=== PATIENT | female | born 1950 | race Caucasian/White ===

== ENCOUNTER → 2016-10-24 | Outpatient (CLI) | payer MEDICARE ==
[2016-10-24 14:13] VITALS: BP 182/90; PULSE 82; RESP 16; TEMP 99.3; BMI 41.5
--- NOTE | 2016-10-24 14:45 | P.HPBAR ---
Bariatric H&P - History & Physicial H&P Date: 10/24/16 History & Physicial: Visit/CC: Band Fill Patient initial contact: Initial weight: 136.078 kg Initial weight in pounds: 300.00 Height: 5 ft 7 in Initial BMI: 47.0 Last weight: Current weight: 120.259 kg Current weight in pounds: 265.00 Current BMI: 41.5 [place] body weight (based on NIH guidelines): 61.235 kg Excess body weight loss: 21.2% The patient is a 66 year-old F who presents for Bariatric Assessment. The patient presents for lab band follow. She is requesting a fill of her LAP- BAND. She currently feels. Past Medical History Past Medical History: GERD/Reflux, Hyperlipidemia, Hypertension, Thyroid Disorder Additional Past Medical History / Comment(s): migraines, recurrent bronchitis, arthritis, low back and neck pain History of Any Multi-Drug Resistant Organisms: None Reported Past Surgical History: Adenoidectomy, Bariatric Surgery, Hernia Repair, Hysterectomy, Tonsillectomy, Tubal Ligation Additional Past Surgical History / Comment(s): bilateral cataract surgery, Bypass by Dr Hurst and band placed over in 2012, Past Anesthesia/Blood Transfusion Reactions: No Reported Reaction Additional Past Anesthesia/Blood Transfusion Reaction / Comm: occasional vertigo Past Psychological History: Anxiety, Depression, Panic Disorder Smoking Status: Former smoker Past Alcohol Use History: None Reported Past Drug Use History: None Reported - Past Family History Mother Family Medical History: Coronary Artery Disease (CAD) Additional Family Medical History / Comment(s): from congestive heart failure Sister(s) Family Medical History: Coronary Artery Disease (CAD) Additional Family Medical History / Comment(s): from heart disease Surgical - Exam Vital Signs Temp Pulse Resp BP 99.3 F 82 16 182/90 10/24/16 14:11 10/24/16 14:11 10/24/16 14:11 10/24/16 14:11 - General well developed, no distress - Eyes PERRL - ENT normal pinna - Neck no masses - Respiratory normal expansion - Cardiovascular Rhythm: regular - Abdomen Abdomen: soft, non tender Bariatric Assessment & Plan Plan: The patient's lap band was adjusted. She had 1 mL added to her band. She currently has 7 mL in the band. She'll follow-up in one month. Bariatric Checklist Checklist: Plan: Checklist: EGD: 1. Hiatal hernia: 2. H. Pylori: HgbA1c: Vitamin D: Smoking: Former smoker Primary care physician referral: [facility] Psychiatry clearance: Cardiology clearance: Sleep study: Diet journal: VTE risk score: VTE risk level: Rehab needs at discharge:
== END | disposition home or self-care (01) ==
LOC: BARWHC3 13:02
PROVIDERS: ATTEND Surgery
DX: Z48.815 Encounter for surgical aftercare following surgery on the digestive system (principal); Z68.41 Body mass index [BMI] 40.0-44.9, adult; Z87.891 Personal history of nicotine dependence; Z98.84 Bariatric surgery status
CPT/HCPCS: 99212

== ENCOUNTER → 2016-11-28 | Outpatient (CLI) | payer MEDICARE ==
[2016-11-28 15:02] VITALS: BP 170/82; PULSE 72; TEMP 98.1; BMI 41.4
--- NOTE | 2016-11-28 15:02 | P.HPBAR ---
Bariatric H&P - History & Physicial H&P Date: 11/28/16 History & Physicial: Visit/CC: Patient initial contact: Initial weight: 136.078 kg Initial weight in pounds: Height: 5 ft 7 in Initial BMI: Last weight: Current weight: 120.111 kg Current weight in pounds: Current BMI: [place] body weight (based on NIH guidelines): Excess body weight loss: The patient is a 66 year-old F who presents for Bariatric Assessment. The patient is requesting a fill of her LAP-BAND. She currently feels hungry. Past Medical History Past Medical History: GERD/Reflux, Hyperlipidemia, Hypertension, Thyroid Disorder Additional Past Medical History / Comment(s): migraines, recurrent bronchitis, arthritis, low back and neck pain History of Any Multi-Drug Resistant Organisms: None Reported Past Surgical History: Adenoidectomy, Bariatric Surgery, Hernia Repair, Hysterectomy, Tonsillectomy, Tubal Ligation Additional Past Surgical History / Comment(s): bilateral cataract surgery, Bypass by Dr Hurst and band placed over in 2012, Past Anesthesia/Blood Transfusion Reactions: No Reported Reaction Additional Past Anesthesia/Blood Transfusion Reaction / Comm: occasional vertigo Past Psychological History: Anxiety, Depression, Panic Disorder Smoking Status: Former smoker Past Alcohol Use History: None Reported Past Drug Use History: None Reported - Past Family History Mother Family Medical History: Coronary Artery Disease (CAD) Additional Family Medical History / Comment(s): from congestive heart failure Sister(s) Family Medical History: Coronary Artery Disease (CAD) Additional Family Medical History / Comment(s): from heart disease Surgical - Exam - Eyes PERRL - ENT normal pinna - Neck no masses - Abdomen Abdomen: soft, non tender Bariatric Assessment & Plan Plan: The LAP-BAND was adjusted. She had 1 mL added to her LAP-BAND. She currently has 8 mL in the LAP-BAND. She will follow-up in one month. Bariatric Checklist Checklist: Plan: Checklist: EGD: 1. Hiatal hernia: 2. H. Pylori: HgbA1c: Vitamin D: Smoking: Former smoker Primary care physician referral: Amber Psychiatry clearance: Cardiology clearance: Sleep study: Diet journal: VTE risk score: VTE risk level: Rehab needs at discharge:
== END | disposition home or self-care (01) ==
LOC: BARWHC3 13:41
PROVIDERS: ATTEND Surgery
DX: Z48.815 Encounter for surgical aftercare following surgery on the digestive system (principal); Z98.84 Bariatric surgery status; Z87.891 Personal history of nicotine dependence
CPT/HCPCS: 99212

== ENCOUNTER → 2017-01-16 | Outpatient (CLI) | payer MEDICARE ==
[2017-01-16 15:12] VITALS: BP 161/81; PULSE 73; RESP 16; TEMP 98.1; BMI 40.4
--- NOTE | 2017-01-16 15:51 | P.HPBAR ---
Bariatric H&P - History & Physicial H&P Date: 01/16/17 History & Physicial: Visit/CC: adj Patient initial contact: Initial weight: 136.078 kg Initial weight in pounds: 300.00 Height: 5 ft 7 in Initial BMI: 47.0 Last weight: Current weight: 117.169 kg Current weight in pounds: 258.00 Current BMI: 40.4 [place] body weight (based on NIH guidelines): 61.235 kg Excess body weight loss: 25.4% The patient is a 66 year-old F who presents for Bariatric Assessment. The patient has had good weight loss since her last visit. She he has had minimal GERD. And some mild complaints of arthritis of her knees. Past Medical History Past Medical History: GERD/Reflux, Hyperlipidemia, Hypertension, Thyroid Disorder Additional Past Medical History / Comment(s): migraines, recurrent bronchitis, arthritis, low back and neck pain History of Any Multi-Drug Resistant Organisms: None Reported Past Surgical History: Adenoidectomy, Bariatric Surgery, Hernia Repair, Hysterectomy, Tonsillectomy, Tubal Ligation Additional Past Surgical History / Comment(s): bilateral cataract surgery, Bypass by Dr Hurst and band placed over in 2012, Past Anesthesia/Blood Transfusion Reactions: No Reported Reaction Additional Past Anesthesia/Blood Transfusion Reaction / Comm: occasional vertigo Past Psychological History: Anxiety, Depression, Panic Disorder Smoking Status: Former smoker Past Alcohol Use History: None Reported Past Drug Use History: None Reported - Past Family History Mother Family Medical History: Coronary Artery Disease (CAD) Additional Family Medical History / Comment(s): from congestive heart failure Sister(s) Family Medical History: Coronary Artery Disease (CAD) Additional Family Medical History / Comment(s): from heart disease Surgical - Exam Vital Signs Temp Pulse Resp BP 98.1 F 73 16 161/81 01/16/17 15:09 01/16/17 15:09 01/16/17 15:09 01/16/17 15:09 - General well developed, no distress - Eyes PERRL - ENT normal pinna - Neck no masses - Cardiovascular Rhythm: regular - Abdomen Abdomen: soft, non tender Bariatric Assessment & Plan Plan: The patient is a certified welder LAP-BAND. She did not have an adjustment today. Her GERD and arthritis symptoms will be observed. Bariatric Checklist Checklist: Plan: Checklist: EGD: 1. Hiatal hernia: 2. H. Pylori: HgbA1c: Vitamin D: Smoking: Former smoker Primary care physician referral: [facility] Psychiatry clearance: Cardiology clearance: Sleep study: Diet journal: VTE risk score: VTE risk level: Rehab needs at discharge:
== END ==
LOC: BARWHC3 13:45
PROVIDERS: ATTEND Surgery
DX: Z48.815 Encounter for surgical aftercare following surgery on the digestive system (principal); K21.9 Gastro-esophageal reflux disease without esophagitis; M19.90 Unspecified osteoarthritis, unspecified site; Z98.84 Bariatric surgery status
CPT/HCPCS: 99211

== ENCOUNTER → 2017-03-20 | Outpatient (CLI) | payer MEDICARE ==
[2017-03-20 13:21] VITALS: BP 151/75; PULSE 65; RESP 16; TEMP 98.2; BMI 39.8
--- NOTE | 2017-04-03 17:17 | P.HPBAR ---
Bariatric H&P - History & Physicial H&P Date: 04/03/17 History & Physicial: Visit/CC: band fill Patient initial contact: Initial weight: 136.078 kg Initial weight in pounds: 300.00 Height: 5 ft 7 in Initial BMI: 47.0 Last weight: Current weight: 115.394 kg Current weight in pounds: 254.40 Current BMI: 39.8 [place] body weight (based on NIH guidelines): 61.235 kg Excess body weight loss: 27.6% The patient is a 66 year-old F who presents for Bariatric Assessment. Patient presents today for lab band follow. She is currently hungry and is requesting an adjustment. Past Medical History Past Medical History: GERD/Reflux, Hyperlipidemia, Hypertension, Thyroid Disorder Additional Past Medical History / Comment(s): migraines, recurrent bronchitis, arthritis, low back and neck pain History of Any Multi-Drug Resistant Organisms: None Reported Past Surgical History: Adenoidectomy, Bariatric Surgery, Hernia Repair, Hysterectomy, Tonsillectomy, Tubal Ligation Additional Past Surgical History / Comment(s): bilateral cataract surgery, Bypass by Dr Hurst and band placed over in 2012, Past Anesthesia/Blood Transfusion Reactions: No Reported Reaction Additional Past Anesthesia/Blood Transfusion Reaction / Comm: occasional vertigo Past Psychological History: Anxiety, Depression, Panic Disorder Smoking Status: Former smoker - Past Family History Mother Family Medical History: Coronary Artery Disease (CAD) Additional Family Medical History / Comment(s): from congestive heart failure Sister(s) Family Medical History: Coronary Artery Disease (CAD) Additional Family Medical History / Comment(s): from heart disease Surgical - Exam Vital Signs Temp Pulse Resp BP 98.2 F 65 16 151/75 03/20/17 13:16 03/20/17 13:16 03/20/17 13:16 03/20/17 13:16 - General well developed, no distress - Eyes PERRL - Abdomen Abdomen: soft, non tender Bariatric Assessment & Plan Plan: The patient LAP-BAND was adjusted. She had 0.5 mL added to her band. Hernias 8.5 mL in the band. She will follow-up in one month to recheck Bariatric Checklist Checklist: Plan: Checklist: EGD: 1. Hiatal hernia: 2. H. Pylori: HgbA1c: Vitamin D: Smoking: Former smoker Primary care physician referral: Mary Martinez ([place]) Psychiatry clearance: Cardiology clearance: Sleep study: Diet journal: VTE risk score: VTE risk level: Rehab needs at discharge:
== END | disposition home or self-care (01) ==
LOC: BARWHC3 12:11
PROVIDERS: ATTEND Surgery
DX: E78.5 Hyperlipidemia, unspecified (principal); Z09 Encounter for follow-up examination after completed treatment for conditions other than malignant neoplasm; I10 Essential (primary) hypertension; K21.9 Gastro-esophageal reflux disease without esophagitis; F32.9 Major depressive disorder, single episode, unspecified; F41.9 Anxiety disorder, unspecified; Z98.84 Bariatric surgery status; Z87.891 Personal history of nicotine dependence
CPT/HCPCS: 99212

== ENCOUNTER → 2017-04-24 | Outpatient (CLI) | payer MEDICARE ==
[2017-04-24 13:46] VITALS: BP 154/89; PULSE 59; RESP 16; TEMP 98.4; BMI 37.9
--- NOTE | 2017-04-24 16:44 | P.HPBAR ---
Bariatric H&P - History & Physicial H&P Date: 04/24/17 History & Physicial: Visit/CC: Band follow-up Patient initial contact: Initial weight: 136.078 kg Initial weight in pounds: 300.00 Height: 5 ft 7 in Initial BMI: 47.0 Last weight: 254 Current weight: 109.798 kg Current weight in pounds: 242.00 Current BMI: 37.9 [place] body weight (based on NIH guidelines): 61.235 kg Excess body weight loss: 35.1% The patient is a 66 year-old F who presents for Bariatric Assessment. The patient presents today for lab band follow up. She's done quite well last month. She does not think she needs any more fluid added to her band. She's had minimal GERD. Past Medical History Past Medical History: GERD/Reflux, Hyperlipidemia, Hypertension, Thyroid Disorder Additional Past Medical History / Comment(s): migraines, recurrent bronchitis, arthritis, low back and neck pain History of Any Multi-Drug Resistant Organisms: None Reported Past Surgical History: Adenoidectomy, Bariatric Surgery, Hernia Repair, Hysterectomy, Tonsillectomy, Tubal Ligation Additional Past Surgical History / Comment(s): bilateral cataract surgery, Bypass by Dr Hurst and band placed over in 2012, Past Anesthesia/Blood Transfusion Reactions: No Reported Reaction Additional Past Anesthesia/Blood Transfusion Reaction / Comm: occasional vertigo Past Psychological History: Anxiety, Depression, Panic Disorder Smoking Status: Former smoker Past Alcohol Use History: None Reported Past Drug Use History: None Reported - Past Family History Mother Family Medical History: Coronary Artery Disease (CAD) Additional Family Medical History / Comment(s): from congestive heart failure Sister(s) Family Medical History: Coronary Artery Disease (CAD) Additional Family Medical History / Comment(s): from heart disease Surgical - Exam Vital Signs Temp Pulse Resp BP 98.4 F 59 L 16 154/89 04/24/17 13:43 04/24/17 13:43 04/24/17 13:43 04/24/17 13:43 - General well developed - Abdomen Abdomen: soft, non tender Bariatric Assessment & Plan Plan: The patient is doing well. Her GERD symptoms be observed. She'll follow-up in one month for recheck. Bariatric Checklist Checklist: Plan: Checklist: EGD: 1. Hiatal hernia: 2. H. Pylori: HgbA1c: Vitamin D: Smoking: Former smoker Primary care physician referral: Mary Good) Psychiatry clearance: Cardiology clearance: Sleep study: Diet journal: VTE risk score: VTE risk level: Rehab needs at discharge:
== END | disposition home or self-care (01) ==
LOC: BARWHC3 13:12
PROVIDERS: ATTEND Surgery
DX: Z09 Encounter for follow-up examination after completed treatment for conditions other than malignant neoplasm (principal); K21.9 Gastro-esophageal reflux disease without esophagitis; E78.5 Hyperlipidemia, unspecified; I10 Essential (primary) hypertension; F41.9 Anxiety disorder, unspecified; F32.9 Major depressive disorder, single episode, unspecified; Z98.84 Bariatric surgery status; Z87.891 Personal history of nicotine dependence
CPT/HCPCS: 99211

== ENCOUNTER → 2017-07-03 | Outpatient (CLI) | payer MEDICARE ==
[2017-07-03 13:47] VITALS: BP 137/76; PULSE 56; RESP 16; TEMP 97.8; BMI 37.8
--- NOTE | 2017-07-03 16:27 | P.HPBAR ---
Bariatric H&P - History & Physicial H&P Date: 07/03/17 History & Physicial: Visit/CC: Band follow-up Patient initial contact: Initial weight: 136.078 kg Initial weight in pounds: 300.00 Height: 5 ft 7 in Initial BMI: 47.0 Last weight: 242 Current weight: 109.458 kg Current weight in pounds: 241.00 Current BMI: 37.8 [place] body weight (based on NIH guidelines): 61.235 kg Excess body weight loss: 35.7% The patient is a 66 year-old F who presents for Bariatric Assessment. The patient presents today for lab band follow up. She denies any significant issues. She has had some mild arthritis of her lower extremity hip and knee. She denies any significant GERD and dysphagia. Past Medical History Past Medical History: GERD/Reflux, Hyperlipidemia, Hypertension, Thyroid Disorder Additional Past Medical History / Comment(s): migraines, recurrent bronchitis, arthritis, low back and neck pain History of Any Multi-Drug Resistant Organisms: None Reported Past Surgical History: Adenoidectomy, Bariatric Surgery, Hernia Repair, Hysterectomy, Tonsillectomy, Tubal Ligation Additional Past Surgical History / Comment(s): bilateral cataract surgery, Bypass by Dr Hurst and band placed over in 2012, Past Anesthesia/Blood Transfusion Reactions: No Reported Reaction Additional Past Anesthesia/Blood Transfusion Reaction / Comm: occasional vertigo Past Psychological History: Anxiety, Depression, Panic Disorder Smoking Status: Former smoker Past Alcohol Use History: None Reported Past Drug Use History: None Reported - Past Family History Mother Family Medical History: Coronary Artery Disease (CAD) Additional Family Medical History / Comment(s): from congestive heart failure Sister(s) Family Medical History: Coronary Artery Disease (CAD) Additional Family Medical History / Comment(s): from heart disease Surgical - Exam Vital Signs Temp Pulse Resp BP 97.8 F 56 L 16 137/76 07/03/17 13:44 07/03/17 13:44 07/03/17 13:44 07/03/17 13:44 - General well developed, no distress - Eyes PERRL - ENT normal pinna - Neck no masses - Respiratory normal expansion - Cardiovascular Rhythm: regular - Abdomen Abdomen: soft, non tender Bariatric Assessment & Plan Plan: LAP-BAND surgery. Patient is doing well. Her band was not adjusted. Her arthritis is minimal and will be observed. She'll follow-up in 2 months. Bariatric Checklist Checklist: Plan: Checklist: EGD: 1. Hiatal hernia: 2. H. Pylori: HgbA1c: Vitamin D: Smoking: Former smoker Primary care physician referral: Mary Good) Psychiatry clearance: Cardiology clearance: Sleep study: Diet journal: VTE risk score: VTE risk level: Rehab needs at discharge:
== END ==
LOC: BARWHC3 13:28
PROVIDERS: ATTEND Surgery
DX: Z48.815 Encounter for surgical aftercare following surgery on the digestive system (principal); Z87.891 Personal history of nicotine dependence; Z98.84 Bariatric surgery status
CPT/HCPCS: 99211

== ENCOUNTER → 2018-01-29 | Outpatient (CLI) | payer MEDICARE ==
[2018-01-29 13:34] VITALS: BP 136/65; PULSE 60; RESP 15; TEMP 98.6; BMI 36.6
--- NOTE | 2018-01-29 15:24 | P.HPBAR ---
Bariatric H&P - History & Physicial H&P Date: 01/29/18 History & Physicial: Visit/CC: band adjustment Patient initial contact: Initial weight: 136.078 kg Initial weight in pounds: 300.00 Height: 5 ft 7 in Initial BMI: 47.0 Last weight: Current weight: 106.141 kg Current weight in pounds: 234.00 Current BMI: 36.6 [place] body weight (based on NIH guidelines): 61.235 kg Excess body weight loss: 40.0% The patient is a 67 year-old F who presents for Bariatric Assessment. Patient presents today for LAP-BAND adjustment. She is currently hungry and requesting a fill of her band. Past Medical History Past Medical History: GERD/Reflux, Hyperlipidemia, Hypertension, Thyroid Disorder Additional Past Medical History / Comment(s): migraines, recurrent bronchitis, arthritis, low back and neck pain History of Any Multi-Drug Resistant Organisms: None Reported Past Surgical History: Adenoidectomy, Bariatric Surgery, Hernia Repair, Hysterectomy, Tonsillectomy, Tubal Ligation Additional Past Surgical History / Comment(s): bilateral cataract surgery, Bypass by Dr Hurst and band placed over in 2012, Past Anesthesia/Blood Transfusion Reactions: No Reported Reaction Additional Past Anesthesia/Blood Transfusion Reaction / Comm: occasional vertigo Past Psychological History: Anxiety, Depression, Panic Disorder Smoking Status: Former smoker Past Alcohol Use History: None Reported Past Drug Use History: None Reported - Past Family History Mother Family Medical History: Coronary Artery Disease (CAD) Additional Family Medical History / Comment(s): from congestive heart failure Sister(s) Family Medical History: Coronary Artery Disease (CAD) Additional Family Medical History / Comment(s): from heart disease Surgical - Exam Vital Signs Temp Pulse Resp BP 98.6 F 60 15 136/65 01/29/18 13:26 01/29/18 13:26 01/29/18 13:26 01/29/18 13:26 - General well developed, no distress - Eyes PERRL - ENT normal pinna - Neck no masses - Respiratory normal expansion - Cardiovascular Rhythm: regular Bariatric Assessment & Plan Plan: Patient LAP-BAND was adjusted. She had 0.2 mL added to her band. She currently is 8.7 in the band. She'll follow-up in one month. Bariatric Checklist Checklist: Plan: Checklist: EGD: 1. Hiatal hernia: 2. H. Pylori: HgbA1c: Vitamin D: Smoking: Former smoker Primary care physician referral: Mary Good) Psychiatry clearance: Cardiology clearance: Sleep study: Diet journal: VTE risk score: VTE risk level: Rehab needs at discharge:
== END | disposition home or self-care (01) ==
LOC: BARWHC3 12:39
PROVIDERS: ATTEND Surgery
DX: Z46.51 Encounter for fitting and adjustment of gastric lap band (principal); T73.0XXA Starvation, initial encounter; K21.9 Gastro-esophageal reflux disease without esophagitis; E78.5 Hyperlipidemia, unspecified; F32.9 Major depressive disorder, single episode, unspecified; I10 Essential (primary) hypertension; F41.9 Anxiety disorder, unspecified; Z98.84 Bariatric surgery status; Z98.890 Other specified postprocedural states; Z87.891 Personal history of nicotine dependence
CPT/HCPCS: 99212

== ENCOUNTER → 2018-04-30 | Outpatient (CLI) | payer MEDICARE ==
[2018-04-30 13:13] VITALS: BP 132/62; PULSE 48; RESP 15; BMI 33.7
--- NOTE | 2018-04-30 13:50 | P.HPBAR ---
Bariatric H&P - History & Physicial H&P Date: 04/30/18 History & Physicial: Visit/CC: weight check following fill in January 2018 Patient initial contact: Initial weight: 136.078 kg Initial weight in pounds: 300.00 Height: 5 ft 7 in Initial BMI: 47.0 Last weight: Current weight: 97.931 kg Current weight in pounds: 215.90 Current BMI: 33.7 [place] body weight (based on NIH guidelines): 61.235 kg Excess body weight loss: 50.9% The patient is a 67 year-old F who presents for Bariatric Assessment. Patient presents today for LAP-BAND follow-up. She states she has good restriction. She's had some minimal GERD. She does not want an adjustment today. She denies a significant dysphagia. Past Medical History Past Medical History: GERD/Reflux, Hyperlipidemia, Hypertension, Thyroid Disorder Additional Past Medical History / Comment(s): migraines, recurrent bronchitis, arthritis, low back and neck pain History of Any Multi-Drug Resistant Organisms: None Reported Past Surgical History: Adenoidectomy, Bariatric Surgery, Hernia Repair, Hysterectomy, Tonsillectomy, Tubal Ligation Additional Past Surgical History / Comment(s): bilateral cataract surgery, Bypass by Dr Hurst and band placed over in 2012, Past Anesthesia/Blood Transfusion Reactions: No Reported Reaction Additional Past Anesthesia/Blood Transfusion Reaction / Comm: occasional vertigo Past Psychological History: Anxiety, Depression, Panic Disorder Smoking Status: Former smoker Past Alcohol Use History: None Reported Past Drug Use History: None Reported - Past Family History Mother Family Medical History: Coronary Artery Disease (CAD) Additional Family Medical History / Comment(s): from congestive heart failure Sister(s) Family Medical History: Coronary Artery Disease (CAD) Additional Family Medical History / Comment(s): from heart disease Surgical - Exam Vital Signs Pulse Resp BP 48 L 15 132/62 04/30/18 12:09 04/30/18 12:09 04/30/18 12:09 - General well developed, no distress - Abdomen Abdomen: soft, non tender Bariatric Assessment & Plan Plan: Status post lap band surgery. Patient is doing well. The patient did not have an adjustment today. Her GERD symptoms are minimal and will be observed. She' ll follow-up in one month. Bariatric Checklist Checklist: Plan: Checklist: EGD: 1. Hiatal hernia: 2. H. Pylori: HgbA1c: Vitamin D: Smoking: Former smoker Primary care physician referral: Mary Good) Psychiatry clearance: Cardiology clearance: Sleep study: Diet journal: VTE risk score: VTE risk level: Rehab needs at discharge:
== END | disposition home or self-care (01) ==
LOC: BARWHC3 11:54
PROVIDERS: ATTEND Surgery
DX: Z09 Encounter for follow-up examination after completed treatment for conditions other than malignant neoplasm (principal); K21.9 Gastro-esophageal reflux disease without esophagitis; Z90.89 Acquired absence of other organs; Z98.84 Bariatric surgery status; Z98.51 Tubal ligation status; Z90.710 Acquired absence of both cervix and uterus; Z87.891 Personal history of nicotine dependence
CPT/HCPCS: 99211

== ENCOUNTER → 2019-01-28 | Outpatient (CLI) | payer MEDICARE ==
[2019-01-28 14:52] VITALS: BP 174/110; PULSE 75; RESP 16; TEMP 98.1; BMI 33.3
--- NOTE | 2019-01-28 16:47 | P.HPBAR ---
Bariatric H&P - History & Physicial H&P Date: 01/28/19 History & Physicial: Visit/CC: Band Adj Patient initial contact: Initial weight: 136.078 kg Initial weight in pounds: 300.00 Height: 5 ft 7 in Initial BMI: 47.0 Last weight: Current weight: 96.615 kg Current weight in pounds: 213.00 Current BMI: 33.3 [place] body weight (based on NIH guidelines): 61.235 kg Excess body weight loss: 52.7% The patient is a 68 year-old F who presents for Bariatric Assessment. Patient presents today for LAP-BAND adjustment. She currently is hungry. Past Medical History Past Medical History: GERD/Reflux, Hyperlipidemia, Hypertension, Thyroid Disorder Additional Past Medical History / Comment(s): migraines, recurrent bronchitis, arthritis, low back and neck pain History of Any Multi-Drug Resistant Organisms: None Reported Past Surgical History: Adenoidectomy, Bariatric Surgery, Hernia Repair, Hysterectomy, Tonsillectomy, Tubal Ligation Additional Past Surgical History / Comment(s): bilateral cataract surgery, Bypass by Dr Hurst and band placed over in 2012, Past Anesthesia/Blood Transfusion Reactions: No Reported Reaction Additional Past Anesthesia/Blood Transfusion Reaction / Comm: occasional vertigo Past Psychological History: Anxiety, Depression, Panic Disorder Smoking Status: Former smoker Past Alcohol Use History: None Reported Past Drug Use History: None Reported - Past Family History Mother Family Medical History: Coronary Artery Disease (CAD) Additional Family Medical History / Comment(s): from congestive heart failure Sister(s) Family Medical History: Coronary Artery Disease (CAD) Additional Family Medical History / Comment(s): from heart disease Surgical - Exam Vital Signs Temp Pulse Resp BP 98.1 F 75 16 174/110 01/28/19 14:48 01/28/19 14:48 01/28/19 14:48 01/28/19 14:48 - General well developed, well nourished, no distress - Abdomen Abdomen: soft, non tender Bariatric Assessment & Plan Plan: Patient LAP-BAND was adjusted. She had 0.5 mL added to the band. She'll follow-up in 4 weeks. Bariatric Checklist Checklist: Plan: Checklist: EGD: 1. Hiatal hernia: 2. H. Pylori: HgbA1c: Vitamin D: Smoking: Former smoker Primary care physician referral: Mary Martinez ([place]) Psychiatry clearance: Cardiology clearance: Sleep study: Diet journal: VTE risk score: VTE risk level: Rehab needs at discharge:
== END ==
LOC: BARWHC3 10:59
PROVIDERS: ATTEND Surgery
DX: Z48.815 Encounter for surgical aftercare following surgery on the digestive system (principal); Z98.84 Bariatric surgery status; Z87.891 Personal history of nicotine dependence
CPT/HCPCS: 99212

== ENCOUNTER → 2019-02-25 | Outpatient (CLI) | payer MEDICARE ==
[2019-02-25 14:03] VITALS: BP 143/81; PULSE 70; RESP 16; TEMP 97.9; BMI 38.8
--- NOTE | 2019-02-25 15:23 | P.HPBAR ---
Bariatric H&P - History & Physicial H&P Date: 02/25/19 History & Physicial: Visit/CC: band adj Patient initial contact: Initial weight: 136.078 kg Initial weight in pounds: 300.00 Height: 5 ft 2.5 in Initial BMI: 54.0 Last weight: Current weight: 97.976 kg Current weight in pounds: 216.00 Current BMI: 38.8 [place] body weight (based on NIH guidelines): 51.029 kg Excess body weight loss: 44.8% The patient is a 68 year-old F who presents for Bariatric Assessment. Patient resents today for LAP-BAND adjustment. She currently has had some dysphagia. Past Medical History Past Medical History: GERD/Reflux, Hyperlipidemia, Hypertension, Thyroid Disorder Additional Past Medical History / Comment(s): migraines, recurrent bronchitis, arthritis, low back and neck pain History of Any Multi-Drug Resistant Organisms: None Reported Past Surgical History: Adenoidectomy, Bariatric Surgery, Hernia Repair, Hysterectomy, Tonsillectomy, Tubal Ligation Additional Past Surgical History / Comment(s): bilateral cataract surgery, Bypass by Dr Hurst and band placed over in 2012, Past Anesthesia/Blood Transfusion Reactions: No Reported Reaction Additional Past Anesthesia/Blood Transfusion Reaction / Comm: occasional vertigo Smoking Status: Former smoker - Past Family History Mother Family Medical History: Coronary Artery Disease (CAD) Additional Family Medical History / Comment(s): from congestive heart failure Sister(s) Family Medical History: Coronary Artery Disease (CAD) Additional Family Medical History / Comment(s): from heart disease Surgical - Exam Vital Signs Temp Pulse Resp BP 97.9 F 70 16 143/81 02/25/19 14:00 02/25/19 14:00 02/25/19 14:00 02/25/19 14:00 - General well developed, well nourished - Abdomen Abdomen: soft, non tender Bariatric Assessment & Plan Plan: Patient's lap band was adjusted. 0.5 mL was removed. Band. She'll follow-up in 4 weeks. Bariatric Checklist Checklist: Plan: Checklist: EGD: 1. Hiatal hernia: 2. H. Pylori: HgbA1c: Vitamin D: Smoking: Former smoker Primary care physician referral: Mary Martinez ([place]) Psychiatry clearance: Cardiology clearance: Sleep study: Diet journal: VTE risk score: VTE risk level: Rehab needs at discharge:
== END | disposition home or self-care (01) ==
LOC: BARWHC3 13:18
PROVIDERS: ATTEND Surgery
DX: Z46.51 Encounter for fitting and adjustment of gastric lap band (principal); Z87.891 Personal history of nicotine dependence
CPT/HCPCS: 99212

== ENCOUNTER → 2019-08-19 | Outpatient (CLI) | payer MEDICARE ==
[2019-08-19 13:51] VITALS: BP 164/97; PULSE 55; TEMP 98; BMI 33.5
--- NOTE | 2019-08-19 13:59 | P.HPBAR ---
Bariatric H&P - History & Physicial H&P Date: 08/19/19 History & Physicial: Visit/CC: lap band follow up Patient initial contact: Initial weight: 136.078 kg Initial weight in pounds: 300.00 Height: 5 ft 7 in Initial BMI: 47.0 Last weight: Current weight: 97.069 kg Current weight in pounds: 214.00 Current BMI: 33.5 [place] body weight (based on NIH guidelines): 61.235 kg Excess body weight loss: 52.1% The patient is a 68 year-old F who presents for Bariatric Assessment. Patient presents today for LAP-BAND follow-up. The patient has had some mild complaints of GERD. She is requesting her band to have some fluid removed. Past Medical History Past Medical History: GERD/Reflux, Hyperlipidemia, Hypertension, Thyroid Disorder Additional Past Medical History / Comment(s): migraines, recurrent bronchitis, arthritis, low back and neck pain History of Any Multi-Drug Resistant Organisms: None Reported Past Surgical History: Adenoidectomy, Bariatric Surgery, Hernia Repair, Hysterectomy, Tonsillectomy, Tubal Ligation Additional Past Surgical History / Comment(s): bilateral cataract surgery, Bypass by Dr Hurst and band placed over in 2012, Past Anesthesia/Blood Transfusion Reactions: No Reported Reaction Additional Past Anesthesia/Blood Transfusion Reaction / Comm: occasional vertigo Past Psychological History: Anxiety, Depression, Panic Disorder Smoking Status: Former smoker Past Alcohol Use History: None Reported Past Drug Use History: None Reported - Past Family History Mother Family Medical History: Coronary Artery Disease (CAD) Additional Family Medical History / Comment(s): from congestive heart failure Sister(s) Family Medical History: Coronary Artery Disease (CAD) Additional Family Medical History / Comment(s): from heart disease Surgical - Exam Vital Signs Temp Pulse BP 98 F 55 L 164/97 08/19/19 13:49 08/19/19 13:49 08/19/19 13:49 - General well developed, well nourished, no distress - Eyes PERRL - Abdomen Abdomen: soft, non tender Bariatric Assessment & Plan Plan: The patient had 0.5 mL removed from her band. She is on water without difficulty. She was placed on omeprazole 40 mg by mouth daily. Bariatric Checklist Checklist: Plan: Checklist: EGD: 1. Hiatal hernia: 2. H. Pylori: HgbA1c: Vitamin D: Smoking: Former smoker Primary care physician referral: Mary Good) Psychiatry clearance: Cardiology clearance: Sleep study: Diet journal: VTE risk score: VTE risk level: Rehab needs at discharge:
== END ==
LOC: BARWHC3 13:15
PROVIDERS: ATTEND Surgery
DX: Z46.51 Encounter for fitting and adjustment of gastric lap band (principal); Z98.84 Bariatric surgery status; Z98.51 Tubal ligation status; Z79.899 Other long term (current) drug therapy; Z87.891 Personal history of nicotine dependence
CPT/HCPCS: 99212

== ENCOUNTER → 2020-01-13 | Outpatient (CLI) | payer MEDICARE ==
[2020-01-13 13:03] VITALS: BP 169/109; PULSE 75; RESP 16; TEMP 97.7; BMI 35.2
--- NOTE | 2020-01-13 14:57 | P.HPBAR ---
Bariatric H&P - History & Physicial H&P Date: 01/13/20 History & Physicial: Visit/CC: Band too tight Patient initial contact: Initial weight: 136.078 kg Initial weight in pounds: 300.00 Height: 5 ft 7 in Initial BMI: 47.0 Last weight: Current weight: 102.058 kg Current weight in pounds: 225.00 Current BMI: 35.2 [place] body weight (based on NIH guidelines): 61.235 kg Excess body weight loss: 45.4% The patient is a 69 year-old F who presents for Bariatric Assessment. Patient presents today for her LAP-BAND adjustment. She currently has some mild dysphagia. She is requesting fluid removed from band. Past Medical History Past Medical History: COPD, GERD/Reflux, Hyperlipidemia, Hypertension, Thyroid Disorder Additional Past Medical History / Comment(s): migraines, recurrent bronchitis, arthritis, low back and neck pain History of Any Multi-Drug Resistant Organisms: None Reported Past Surgical History: Adenoidectomy, Bariatric Surgery, Hernia Repair, Hyster ectomy, Tonsillectomy, Tubal Ligation Additional Past Surgical History / Comment(s): bilateral cataract surgery, Bypass by Dr Hurst and band placed over in 2012, Past Anesthesia/Blood Transfusion Reactions: No Reported Reaction Additional Past Anesthesia/Blood Transfusion Reaction / Comm: occasional vertigo Smoking Status: Former smoker - Past Family History Mother Family Medical History: Coronary Artery Disease (CAD) Additional Family Medical History / Comment(s): from congestive heart failure Sister(s) Family Medical History: Coronary Artery Disease (CAD) Additional Family Medical History / Comment(s): from heart disease Surgical - Exam Vital Signs Temp Pulse Resp BP 97.7 F 75 16 169/109 01/13/20 12:54 01/13/20 12:54 01/13/20 12:54 01/13/20 12:54 - General well developed, well nourished, no distress - Eyes PERRL - ENT normal pinna - Neck no masses - Abdomen Abdomen: soft, non tender Bariatric Assessment & Plan Plan: Dysphagia related to LAP-BAND occlusion. Patient had 0.5 mL removed from her band. She was able require without difficulty. She currently is 8.7 mL in the band. Bariatric Checklist Checklist: Plan: Checklist: EGD: 1. Hiatal hernia: 2. H. Pylori: HgbA1c: Vitamin D: Smoking: Former smoker Primary care physician referral: Mary Good) Psychiatry clearance: Cardiology clearance: Sleep study: Diet journal: VTE risk score: VTE risk level: Rehab needs at discharge:
== END | disposition home or self-care (01) ==
LOC: BARWHC3 12:50
PROVIDERS: ATTEND Surgery
DX: Z46.51 Encounter for fitting and adjustment of gastric lap band (principal); K95.09 Other complications of gastric band procedure; R13.10 Dysphagia, unspecified; Z87.891 Personal history of nicotine dependence; Z98.84 Bariatric surgery status
CPT/HCPCS: G0463 ×2; 99211; 99212

== ENCOUNTER → 2020-08-03 | Outpatient (CLI) | payer MEDICARE ==
[2020-08-03 13:04] VITALS: BP 121/80; PULSE 59; TEMP 98.1; BMI 34.6
--- NOTE | 2020-08-03 14:07 | P.HPBAR ---
Bariatric H&P - History & Physicial H&P Date: 08/03/20 History & Physicial: Visit/CC: band follow up Patient initial contact: Initial weight: 136.078 kg Initial weight in pounds: 300.00 Height: 5 ft 7 in Initial BMI: 47.0 Last weight: Current weight: 100.244 kg Current weight in pounds: 221.00 Current BMI: 34.6 [place] body weight (based on NIH guidelines): 61.235 kg Excess body weight loss: 47.8% The patient is a 69 year-old F who presents for Bariatric Assessment. Patient rents today for lab band follow. She's had some mild complaints of GERD. Past Medical History Past Medical History: COPD, GERD/Reflux, Hyperlipidemia, Hypertension, Thyroid Disorder Additional Past Medical History / Comment(s): migraines, recurrent bronchitis, arthritis, low back and neck pain History of Any Multi-Drug Resistant Organisms: None Reported Past Surgical History: Adenoidectomy, Bariatric Surgery, Hernia Repair, Hysterectomy, Tonsillectomy, Tubal Ligation Additional Past Surgical History / Comment(s): bilateral cataract surgery, Bypass by Dr Hurst and band placed over in 2012, Past Anesthesia/Blood Transfusion Reactions: No Reported Reaction Additional Past Anesthesia/Blood Transfusion Reaction / Comm: occasional vertigo Smoking Status: Never smoker - Past Family History Mother Family Medical History: Coronary Artery Disease (CAD) Additional Family Medical History / Comment(s): from congestive heart failure Sister(s) Family Medical History: Coronary Artery Disease (CAD) Additional Family Medical History / Comment(s): from heart disease Surgical - Exam Vital Signs Temp Pulse BP 98.1 F 59 L 121/80 08/03/20 13:02 08/03/20 13:02 08/03/20 13:02 - General well developed, well nourished, no distress - Eyes PERRL - ENT normal pinna - Neck no masses - Respiratory normal expansion - Cardiovascular Rhythm: regular - Abdomen Abdomen: soft, non tender Bariatric Assessment & Plan Plan: Patient LAP-BAND was adjusted. 0.5 mL removal LAP-BAND. She currently is 8.2 mL in the band. She'll follow-up in 4 weeks. Bariatric Checklist Checklist: Plan: Checklist: EGD: 1. Hiatal hernia: 2. H. Pylori: HgbA1c: Vitamin D: Smoking: Former smoker Primary care physician referral: Mary Martinez ([place]) Psychiatry clearance: Cardiology clearance: Sleep study: Diet journal: VTE risk score: VTE risk level: Rehab needs at discharge:
== END | disposition home or self-care (01) ==
LOC: BARWHC3 12:16
PROVIDERS: ATTEND Surgery
DX: Z46.51 Encounter for fitting and adjustment of gastric lap band (principal); K21.9 Gastro-esophageal reflux disease without esophagitis
CPT/HCPCS: 99211